=== PATIENT | female | born 1975 | race Caucasian/White ===

== ENCOUNTER 2017-09-11 19:37 | Emergency (ER) | payer BC ==
[2017-09-11] MEDS ORDERED: HYDROcodone/Acetaminophen 5/325 mg Tablet ONE (19:55)
--- NOTE | 2017-09-11 21:06 | ULT ---
ULTRASOUND DOPPLER DUPLEX VENOUS LEFT UPPER EXTREMITY 09/11/17 HISTORY: 42-year-old female with left upper extremity pain. TECHNIQUE: Mccloud scale, color flow, and spectral analysis of major veins of left upper extremity. Compression vadim lied to all veins except the subclavian. FINDINGS: The left internal jugular, subclavian, axillary, basilic, ulnar, radial, cephalic, and brachial, vein s, are patent, with blood flow. IMPRESSION: Negative. No deep venous thrombosis of the left upper extremity. POS: [facility]
== END 2017-09-11 21:14 | disposition home or self-care (01) ==
LOC: SCSER 19:37
DX: M79.622 Pain in left upper arm (principal); I10 Essential (primary) hypertension; F17.210 Nicotine dependence, cigarettes, uncomplicated

== ENCOUNTER 2018-05-11 10:05 | Outpatient (CLI) | payer BC ==
--- NOTE | 2018-05-11 12:46 | ULT ---
ULTRASOUND ABDOMEN: HISTORY: Epigastric pain. FINDINGS: There is a 2.7 x 2.8 x 2 cm echogenic mass in the left lobe of the liver, likely hemangioma. The spl een is normal. A nonshadowing single small mobile echogenic focus is seen in the gallbladder consist ent with small sludge ball or calculus. No gallbladder wall thickening or pericholecystic fluid is s een. The common duct measures 3 mm in diameter. The kidneys and visualized portions of the pancreas , aorta, and IVC appear normal. No free fluid is seen. IMPRESSION: 1. Left liver lobe mass suspicious for hemangioma. Confirmation with Technetium 99m labeled RBC sca n is recommended. 2. Small gallstone versus sludge ball. POS: [facility]
== END 2018-05-11 10:06 | disposition home or self-care (01) ==
LOC: BICULT 10:05
PROVIDERS: ATTEND Family Medicine
DX: K57.92 Diverticulitis of intestine, part unspecified, without perforation or abscess without bleeding (principal); R10.11 Right upper quadrant pain; J20.9 Acute bronchitis, unspecified; R16.0 Hepatomegaly, not elsewhere classified; R19.7 Diarrhea, unspecified; R51 Headache
CPT/HCPCS: 36415; 76700; 80053; 85025

== ENCOUNTER 2018-05-14 10:13 | Day surgery (SDC) | payer BC ==
[2018-05-13 12:43] VITALS: BMI 29.5
[2018-05-14] MEDS ORDERED: Promethazine HCl 25 MG/ML VIAL ONE (10:59)
[2018-05-14] MEDS ORDERED: Midazolam HCl 2 mg/2 ml Vial ONE (10:59)
[2018-05-14] MEDS ORDERED: Bupivacaine HCl 0.5%/Epinephrine 1:200,000/PF 30 ml Vial ONE (11:29)
[2018-05-14] MEDS ORDERED: Fentanyl 100 MCG/2 ML VIAL ONE ×4 (11:37→13:42)
[2018-05-14] MEDS ORDERED: SUGAMMADEX SODIUM 200 MG/2 ML VIAL ONE (12:55)
--- NOTE | 2018-05-14 14:25 | OP ---
DATE OF PROCEDURE: 05/14/2018 PREOPERATIVE DIAGNOSIS: Symptomatic gallstones. POSTOPERATIVE DIAGNOSIS: Symptomatic gallstones. PROCEDURE PERFORMED: Laparoscopic cholecystectomy. ANESTHESIA: General. ESTIMATED BLOOD LOSS: Minimal. COMPLICATIONS: None. SPECIMEN: Gallbladder. FINDINGS: Cholecystitis. PROCEDURE IN DETAIL: The patient was taken to the operating room and laid supine on the operating room table. After general anesthetic was obtained, the abdomen was prepped and draped in a sterile fashion. A curved incision was made below the umbilicus. Cautery was used to dissect down to the umbilical fascia. Umbilical fascia was incised and held up using a Kiko. The abdominal cavity was entered using a Tracey clamp. Holding stitch of Vicryl was placed on each side of the fascia. Pro trocar was placed. High-flow pneumoperitoneum was obtained. An upper midline 5 mm port and 2 right upper quadrant 5 mm ports were placed under direct camera visualization. The gallbladder was retracted from the gallbladder fossa. The peritoneum of the gallbladder was opened anteriorly and posteriorly. The critical view triangle was seen showing only the cystic duct and cystic artery branching from medial to lateral. There were no other branching structures. Two clips were placed proximally on the cystic duct and one laterally. It was cut using laparoscopic scissors. The cystic artery was taken in the same way. Electrocautery was then used to dissect the gallbladder out of the gallbladder fossa. The gallbladder was placed in an Endo catch bag and brought out through the Pro. There was no bleeding or bile in the liver bed. The cystic duct stump and cystic artery stump were intact, without evidence of extravasation or bleeding. All port sites were infiltrated using local anesthesia. All ports were removed under camera visualization. Pneumoperitoneum was let down. The Vicryl was used to close the fascial defect below the umbilicus. All incisions were irrigated and closed using 4-0 Monocryl and Dermabond. The patient was en route to Recovery in stable condition. All instrument counts, needle counts and lap counts were correct. Job ID: [id number]
[2018-05-14] MEDS ORDERED: Morphine 2 MG/ML SYRINGE ONE (15:00)
[2018-05-14] MEDS ORDERED: HYDROcodone/Acetaminophen 5/325 mg Tablet ONE (15:24)
[2018-05-14] MEDS ORDERED: Ondansetron PF 4 MG/2 ML Vial ONE (16:32)
[2018-05-14] MEDS ORDERED: Glycopyrrolate 0.2 MG/ML 5 ML SYRINGE ONE (16:32)
[2018-05-14] MEDS ORDERED: Lidocaine 1% PF 5 ML VIAL ONE (16:32)
[2018-05-14] MEDS ORDERED: Dexamethasone 20 MG/5 ML VIAL ONE (16:32)
[2018-05-14] MEDS ORDERED: PROPOFOL 200 MG/20 ML VIAL ONE (16:32)
[2018-05-14] MEDS ORDERED: Rocuronium Bromide 10 MG/ML (10ML VIAL) ONE (16:32)
[2018-05-14] MEDS ORDERED: Ketorolac Tromethamine 30 MG/ML VIAL ONE (16:32)
== END 2018-05-14 16:35 | disposition home or self-care (01) ==
LOC: SDC 10:13
PROVIDERS: ATTEND Surgery
PROC: 0FT44ZZ Resection of Gallbladder, Percutaneous Endoscopic Approach (ICD-10-PCS; principal; 2018-05-14)
DX: K80.10 Calculus of gallbladder with chronic cholecystitis without obstruction (principal); F17.210 Nicotine dependence, cigarettes, uncomplicated; F41.9 Anxiety disorder, unspecified; F32.9 Major depressive disorder, single episode, unspecified; Z79.899 Other long term (current) drug therapy
CPT/HCPCS: 88304; J0670; J1100; J1885; J2001; J2250; J2270; J2405; J2550; J2704; J3010

== ENCOUNTER 2018-06-29 09:23 | Outpatient (CLI) | payer BC ==
--- NOTE | 2018-06-29 10:46 | RAD ---
FRadiograph chest one view Radiograph abdomen 2 views: HISTORY: 43-year-old female with generalized abdominal pain for one week FINDINGS: Lungs are essentially clear. Cardiomediastinal silhouette is normal. No pneumothorax or pneumoperiton eum. Lateral costophrenic angles are sharp. Clips in right upper quadrant. Normal bowel gas pattern. IMPRESSION: 1. Status post cholecystectomy. 2. No acute findings.
== END 2018-06-29 09:24 | disposition home or self-care (01) ==
LOC: BICRAD 09:23
PROVIDERS: ATTEND Family Medicine
DX: R10.9 Unspecified abdominal pain (principal); R19.5 Other fecal abnormalities; Z90.49 Acquired absence of other specified parts of digestive tract
CPT/HCPCS: 36415; 74022; 80053; 80074; 81240; 81241; 82150; 82977; 83036; 83090; 83615; 83690; 85025; 85240; 85300; 85303; 85305; 85307; 85379; 85598; 85610; 85730; 86147; 86677

== ENCOUNTER 2019-06-01 08:00 | Outpatient (CLI) | payer BC ==
--- NOTE | 2019-06-01 09:12 | ULT ---
HEPATIC DUPLEX ULTRASOUND INCLUDING COLOR AND SPECTRAL DOPPLER IMAGING: HISTORY: Followup liver mass. FINDINGS: There is a circumscribed echogenic mass in the left lobe of the liver measuring approximately 2.1 x 2 .4 x 3.4 cm in size. This appears to be slightly larger than on the prior study. Otherwise, liver e chotexture is within normal limits. Status post cholecystectomy. Common bile duct 0.4 cm. The sple en is unremarkable. Pancreas is unremarkable as visualized. Hepatic venous and portal venous flow is antegrade. IMPRESSION: Status post cholecystectomy. Hyperechoic mass in the left lobe of the liver which appears to be slig htly more prominent in size when compared to the prior study. No ductal dilatation. Antegrade hepat ic and portal flow. Hyperechoic circumscribed mass in the left lobe is evidence for a noncavernous hemangioma. If that d iagnosis is in doubt, followup nuclear medicine labelled red blood cell scan might be considered vers us a followup CT scan of the abdomen and liver with and without IV contrast with hemangioma protocol. POS: [facility]
== END 2019-06-01 08:01 | disposition home or self-care (01) ==
LOC: SCSULT 08:00
PROVIDERS: ATTEND Physician Assistant Medical
DX: K76.89 Other specified diseases of liver (principal); Z90.49 Acquired absence of other specified parts of digestive tract; D18.03 Hemangioma of intra-abdominal structures
CPT/HCPCS: 76705

== ENCOUNTER 2019-06-15 13:28 | Outpatient (CLI) | payer BC ==
--- NOTE | 2019-06-15 14:32 | MRI ---
MRI CERVICAL SPINE WITHOUT CONTRAST: HISTORY: Radicular pain. Chronic neck pain.. COMPARISON: None. FINDINGS: Metallic susceptibility artifact associated with cervical fusion changes at C5, C6 and C7. Straighten ing of cervical lordosis is presumed to be due to fusion changes. No significant STIR hyperintensity to suggest vertebral body edema or ligamentous injury. Visualized brain parenchyma, cervicomedullary junction, cervical cord and the upper thoracic cord hav e a normal size and signal intensity. C2-C3: No significant central canal stenosis or significant neural foramina narrowing. C3-C4: Mild loss of disc space height. Broad-based disc bulge abuts the thecal sac. Mild central alfreda l stenosis. Mild bilateral foraminal narrowing due to uncovertebral hypertrophy. 1.8 mm of anterolisthesis of C3 upon C4. C4-C5: Mild loss of disc space height. Broad-based disc bulge abuts the thecal sac. Mild central alfreda l stenosis. Mild to moderate bilateral foraminal narrowing due to uncovertebral hypertrophy. C5-C6: Broad-based osteophyte ridge with a central component results in moderate central canal stenos is. Moderate bilateral foraminal narrowing due to uncovertebral hypertrophy. C6-C7: Central osteophyte ridge causes mass effect upon the left hemicord. Mild central canal stenosi s. Bilaterally, neural foramina are patent. C7-T1: No significant central canal stenosis. Neural foramina are patent. IMPRESSION: 1. Cervical fusion from C5 through C7. 2. There are varying degrees of central canal stenosis and neural foraminal narrowing as detailed abo ve. Transcribed Date/Time: 06/15/2019 2:41 PM
== END 2019-06-15 13:29 | disposition home or self-care (01) ==
LOC: SCSMRI 13:28
PROVIDERS: ATTEND Specialist
DX: M54.12 Radiculopathy, cervical region (principal); M48.02 Spinal stenosis, cervical region; Z98.1 Arthrodesis status
CPT/HCPCS: 72141

== ENCOUNTER 2019-06-17 10:42 | Outpatient (CLI) | payer BC ==
[2019-06-17] MEDS ORDERED: Heparin 1,000 UNITS/ML VIAL ONE (12:40)
--- NOTE | 2019-06-17 16:02 | NM ---
Radionucleotide liver spleen hemangioma scan HISTORY: Hyperechoic liver mass on sonogram. FINDINGS: Physiologic uptake of radiotracer labeled red blood cells throughout the liver. A focal ova l area of increased activity is present within the inferior aspect of the lateral segment left liver lobe. This correlates with the hyperechoic lesion on recent sonogram. No other liver abnormalities are apparent. IMPRESSION : This exam confirms that the hyperechoic lesion in the left liver lobe is a hemangioma.
== END 2019-06-17 10:43 | disposition home or self-care (01) ==
LOC: NM 10:42
PROVIDERS: ATTEND Internal Medicine Gastroenterology
DX: K76.9 Liver disease, unspecified (principal); D18.03 Hemangioma of intra-abdominal structures
CPT/HCPCS: 78803; A9604; J1644

== ENCOUNTER 2019-06-20 19:59 | Emergency (ER) | payer BC, OTHER | END 2019-06-20 20:58 | disposition home or self-care (01) | LOC: ERS 19:59 | DX: J11.1 Influenza due to unidentified influenza virus with other respiratory manifestations (principal); I10 Essential (primary) hypertension; F17.210 Nicotine dependence, cigarettes, uncomplicated; Z79.899 Other long term (current) drug therapy | CPT/HCPCS: 87804; 99283 ==

== ENCOUNTER 2019-10-01 08:10 | Outpatient (CLI) | payer BC ==
--- NOTE | 2019-10-01 09:09 | MRI ---
MRI Lumbar Spine Noncontrast: HISTORY: Lumbar radiculopathy. Patient complains of left lower extremity pain and back pain for 3 weeks. COMPARISON: None FINDINGS: The visualized retroperitoneal structures demonstrate a normal appearance. Conus medullaris is normal in morphology and terminates at the L1 level. There is a Schmorl's node in the superior endplate of the L5 vertebral body. There is an increased T1 and T2-weighted signal intensity 1.2 cm focus in the S1 vertebral body demonstrating characteristics compatible with a small hemangioma. T11-12 and T12-L1: Minimal disc bulges are present which does not result in central canal narrowing. Neural foramina are patent these levels. L1-2: There is no disc bulge or disc herniation. Central spinal canal and neural foramina are patent. L2-3: There is no disc bulge or disc herniation. Central spinal canal and neural foramina are patent. Mild facet hypertrophic changes are present. L3-4: There is no disc bulge or disc herniation. Central spinal canal and neural foramina are patent. Mild facet hypertrophic changes are present. L4-5: There is loss of intervertebral disc height. Broad-based disc osteophyte complex is present res ulting in slight effacement of the ventral subarachnoid space. Facet hypertrophic changes are present. Mild bilateral neural foraminal narrowing is present. L5-S1: There is loss of intervertebral disc height. Broad-based disc osteophyte complex is present. M inimal endplate degenerative changes are present at this level. Facet hypertrophic changes are present. Central spinal canal and left neural foramen are patent. There is moderate to severe right-s ided neural foraminal narrowing. IMPRESSION: Disc degenerative changes in the lower lumbar spine. Findings are greatest at the L5-S1 level where t here is moderate to severe right-sided neural foraminal narrowing related to facet hypertrophic changes as well as disc osteophyte complex.
== END 2019-10-01 08:11 | disposition home or self-care (01) ==
LOC: BICMRI 08:10
PROVIDERS: ATTEND Specialist
DX: M51.16 Intervertebral disc disorders with radiculopathy, lumbar region (principal); M48.07 Spinal stenosis, lumbosacral region; M25.78 Osteophyte, vertebrae
CPT/HCPCS: 72148

== ENCOUNTER 2019-12-16 07:41 | Outpatient (CLI) | payer BC, OTHER ==
[2019-12-16 18:01] LABS: Hemoglobin 14.2 g/dL (12.0-16.0); Mean Corpuscular HGB CONC 34.4 g/dL (32.0-36.0); Mean Corpuscular Hemoglobin 32.4 pg (27.0-31.0); Mean Corpuscular Volume 94.2 fL (78.0-98.0); Mean Platelet Volume 7.4 fL (7.4-10.4); Platelet Count 297 thou/uL (130-400); RBC Distribution Width 11.7 % (11.5-14.5); Red Blood Cell (RBC) Count 4.39 mill/uL (4.20-5.40); White Blood Cell (WBC) Count 9.9 thou/uL (4.8-10.8)
[2019-12-16 18:05] LABS: Anion Gap 10 mmol/L (10-20); BUN (Urea Nitrogen) 15 mg/dL (7.0-18.7); Calc. Creatinine Clearance 0 mL/min (70-130); Calcium 8.5 mg/dL (7.8-10.44); Carbon Dioxide 25 mmol/L (22-29); Chloride 107 mmol/L (98-107); Estimated GFR-MDRD 62; Glucose 126 mg/dL (70-105); Potassium 4.3 mmol/L (3.5-5.1); Sodium 138 mmol/L (136-145)
[2019-12-17 12:03] LABS: SARS-CoV-2 MS2 Positive; SARS-CoV-2 N Gene Negative; SARS-CoV-2 S Gene Negative; SARS-CoV-2 by NAA Not Detected (NotDetected); SARS-CoV-2 orf1ab Negative
== END 2019-12-16 07:42 | disposition home or self-care (01) ==
LOC: LABBT 07:41
PROVIDERS: ATTEND Neurological Surgery
DX: Z01.818 Encounter for other preprocedural examination (principal); Z20.828 Contact with and (suspected) exposure to other viral communicable diseases; M54.16 Radiculopathy, lumbar region
CPT/HCPCS: 80048; 85027; 87635; U0003

== ENCOUNTER 2019-12-20 06:45 | Day surgery (SDC) | payer BC ==
[2019-12-17 12:04] VITALS: BMI 30.5
[2019-12-20] MEDS ORDERED: Midazolam HCl 2 mg/2 ml Vial ONE (07:17)
[2019-12-20] MEDS ORDERED: Famotidine/PF 20 mg/2ml Vial ONE (07:18)
[2019-12-20] MEDS ORDERED: Scopolamine 1.5 mg/72 hour Patch ONE (07:18)
[2019-12-20] MEDS ORDERED: Fentanyl 100 MCG/2 ML VIAL ONE ×3 (07:29→09:49)
[2019-12-20] MEDS ORDERED: SUGAMMADEX SODIUM 200 MG/2 ML VIAL ONE (08:57)
[2019-12-20] MEDS ORDERED: Ondansetron PF 4 MG/2 ML Vial ONE (09:56)
[2019-12-20] MEDS ORDERED: Rocuronium Bromide 10 MG/ML (10ML VIAL) ONE (09:56)
[2019-12-20] MEDS ORDERED: Dexamethasone 20 MG/5 ML VIAL ONE (09:56)
[2019-12-20] MEDS ORDERED: diphenhydrAMINE 50 MG/ML VIAL ONE (09:56)
[2019-12-20] MEDS ORDERED: Lidocaine 1% PF 5 ML VIAL ONE (09:56)
[2019-12-20] MEDS ORDERED: PROPOFOL 200 MG/20 ML VIAL ONE (09:56)
[2019-12-20] MEDS ORDERED: tiZANidine HCl 4 MG TAB ONE (10:01)
[2019-12-20] MEDS ORDERED: HYDROcodone/Acetaminophen 5/325 mg Tablet ONE (12:03)
--- NOTE | 2019-12-20 14:31 | OP ---
DATE OF PROCEDURE: 12/20/2019 TREE SURGEON: Rose Mary Hobson PA-C PROCEDURE PERFORMED: Left L4-L5 microdiskectomy. DESCRIPTION OF PROCEDURE: The patient was brought to the operating room and intubated. She was rolled in a prone position on gel-filled chest rolls. An incision was made exposing L4-L5 on the left and the level was confirmed by x-ray. We performed a left L4-L5 hemilaminectomy, identified the left L5 nerve root and beneath this was an extruded disk fragment in multiple fragments with some degree of calcification. We removed this and complete decompression of left L5 was achieved. The wound was extensively irrigated and MAC hemostasis was secured. Vancomycin powder was applied and the wound was closed in anatomic layers. Job ID: [id number]
--- NOTE | 2019-12-21 16:08 | EKG ---
Test Reason : PREOP Blood Pressure : / mmHG Vent. Rate : 070 BPM Atrial Rate : 070 BPM P-R Int : 150 ms QRS Dur : 072 ms QT Int : 418 ms P-R-T Axes : 043 061 025 degrees QTc Int : 451 ms Normal sinus rhythm Normal ECG No previous ECGs available Confirmed by ROYAL HODGE ([id number]) on 12/21/2019 4:08:11 PM Referred By: ANNE Confirmed By:ROYAL HODGE
== END 2019-12-20 12:30 | disposition home or self-care (01) ==
LOC: SDC 06:45
PROVIDERS: ATTEND Neurological Surgery
PROC: 0ST20ZZ Resection of Lumbar Vertebral Disc, Open Approach (ICD-10-PCS; principal; 2019-12-20)
DX: M54.16 Radiculopathy, lumbar region (principal); I10 Essential (primary) hypertension; E78.00 Pure hypercholesterolemia, unspecified; K58.9 Irritable bowel syndrome, unspecified; F41.9 Anxiety disorder, unspecified; F32.9 Major depressive disorder, single episode, unspecified; Z79.899 Other long term (current) drug therapy
CPT/HCPCS: 76000; 93005; 93010; J0690; J1100; J1200; J2250; J2405; J2704; J3010; J3370; S0028

== ENCOUNTER 2021-01-17 13:38 | Outpatient (CLI) | payer BC | END 2021-01-17 13:39 | disposition home or self-care (01) | LOC: TBSIIMAG 13:38 | PROVIDERS: ATTEND Specialist | DX: M54.16 Radiculopathy, lumbar region (principal); M51.27 Other intervertebral disc displacement, lumbosacral region; Z98.890 Other specified postprocedural states | CPT/HCPCS: 72158 ==

== ENCOUNTER 2021-04-06 16:01 | Outpatient (CLI) | payer BC | END 2021-04-06 16:02 | disposition home or self-care (01) | LOC: SCSMRI 16:01 → BICMRI 16:02 | PROVIDERS: ATTEND Specialist | DX: M47.22 Other spondylosis with radiculopathy, cervical region (principal); M54.16 Radiculopathy, lumbar region; M48.02 Spinal stenosis, cervical region; Z98.1 Arthrodesis status | CPT/HCPCS: 72141 ==

== ENCOUNTER 2023-10-02 09:19 | Outpatient (CLI) | payer BC | END 2023-10-02 09:20 | disposition home or self-care (01) | LOC: SCSMRI 09:19 | PROVIDERS: ATTEND Specialist | DX: M50.121 Cervical disc disorder at C4-C5 level with radiculopathy (principal); G95.20 Unspecified cord compression; Z98.890 Other specified postprocedural states | CPT/HCPCS: 72141 ==